=== PATIENT | female | born 1975 | race Asian ===

== ENCOUNTER 2018-11-05 22:11 | Emergency (ER) | payer OTHER ==
[~2018-11-05] VITALS: Ht 157.5 cm; Wt 51.7 kg
[2018-11-05 22:15] VITALS: BP_SYST 132
--- NOTE | 2018-11-05 22:15 | NUR ---
Pt placed to ER bed 07, to gown, to belt repairer. Pt c/o vaginal bleeding x 45 min PROCESSING SPEC. Pt states she noticed a mass of brown-red blood come out. Pt states that she is 8 weeks and this is her first .
--- NOTE | 2018-11-05 22:45 | NUR ---
Dr. Mejia at bedside to perform pelvic exam chaparoned by JENISE Hahn.
[2018-11-05 22:55] LABS: CALCIUM 9.8 mg/dL (8.4-11.0); CREATININE 0.63 mg/dL (0.55-1.30); POTASSIUM 3.9 mmol/L (3.5-5.1)
[2018-11-05 22:57] LABS: BASOPHILS % (AUTO) 0.4 % (0.0-2.0); EOSINOPHILS # (AUTO) 0.1 K/uL (0.0-0.4); EOSINOPHILS % (AUTO) 0.7 % (0.0-4.0); HEMATOCRIT 22.8 % (36-48); HEMOGLOBIN 7.5 g/dL (12.0-16.0); LYMPHOCYTES # (AUTO) 5.2 K/uL (1.0-5.5); LYMPHOCYTES % (AUTO) 46.5 % (20.5-51.5); MEAN CORPUSCULAR HEMOGLOBIN 23 pg (27-31); MEAN CORPUSCULAR HGB CONC 33 % (32-36); MEAN CORPUSCULAR VOLUME 69 fL (79.0-98.0); MONOCYTES # (AUTO) 0.7 K/uL (0.0-1.0); MONOCYTES % (AUTO) 6.6 % (1.7-9.3); NEUTROPHILS # (AUTO) 5.1 K/uL (1.8-7.7); NEUTROPHILS % (AUTO) 45.8 % (40.0-70.0); PLATELET COUNT (AUTO) 337 K/uL (130-430); RED BLOOD CELL COUNT(AUTO) 3.32 MIL/uL (4.2-6.2); RED CELL DISTRIBUTION WIDTH 15.7 % (9.0-15.0); WHITE BLOOD COUNT (AUTO) 11.1 K/uL (4.8-10.8)
--- NOTE | 2018-11-05 23:15 | NUR ---
Denies c/o pain or discomfort, no needs verbalized at this time.
[2018-11-05 23:20] LABS: ALBUMIN 3.4 g/dL (3.4-4.8); TOTAL BILIRUBIN 0.5 mg/dL (0.0-1.0)
[2018-11-05 23:35] VITALS: BP_SYST 126
--- NOTE | 2018-11-05 23:35 | NUR ---
Patient given written and verbal discharge instructions and verbalizes understanding. ER MD discussed with patient the results and treatment provided. Patient in stable condition. ID arm band removed. No Rx given. Patient educated on pain management and to follow up with PMD. Pain Scale 0/10. Opportunity for questions provided and answered. Medication side effect fact sheet provided.
== END 2018-11-05 23:35 | disposition home or self-care (01) ==
LOC: SED 22:11
DX: O20.0 Threatened abortion (principal); Z91.018 Allergy to other foods; Z3A.09 9 weeks gestation of pregnancy
CPT/HCPCS: 36415; 76801; 80053; 81025; 84702-TC; 85025; 99284

== ENCOUNTER 2019-06-04 16:13 | Inpatient (IN) | payer BC, OTHER ==
[~2019-06-04] VITALS: Ht 158.8 cm; Wt 68.5 kg
[2019-06-04] MEDS ORDERED: OXYTOCIN/0.9 % SODIUM CHLORIDE 1,000 ML IV SCH (17:47)
[2019-06-04] MEDS ORDERED: DINOPROSTONE 10 MG SUPP VG ONE (18:00)
[2019-06-04] MEDS ORDERED: NALBUPHINE HCL 10 MG/ML AMP IVP PRN (18:00)
[2019-06-04 18:14] LABS: BASOPHILS % (AUTO) 0.3 % (0.0-2.0); EOSINOPHILS % (AUTO) 0.4 % (0.0-4.0); HEMATOCRIT 22.3 % (36-48); HEMOGLOBIN 7.2 g/dL (12.0-16.0); LYMPHOCYTES # (AUTO) 3.5 K/uL (1.0-5.5); LYMPHOCYTES % (AUTO) 31.9 % (20.5-51.5); MEAN CORPUSCULAR HEMOGLOBIN 25 pg (27-31); MEAN CORPUSCULAR HGB CONC 32 % (32-36); MEAN CORPUSCULAR VOLUME 77 fL (79.0-98.0); MONOCYTES # (AUTO) 0.8 K/uL (0.0-1.0); MONOCYTES % (AUTO) 7.4 % (1.7-9.3); NEUTROPHILS # (AUTO) 6.6 K/uL (1.8-7.7); PLATELET COUNT (AUTO) 266 K/uL (130-430); RED BLOOD CELL COUNT(AUTO) 2.91 MIL/uL (4.2-6.2); WHITE BLOOD COUNT (AUTO) 11.1 K/uL (4.8-10.8)
[2019-06-04 18:51] VITALS: BP_SYST 119
[2019-06-04] MEDS ORDERED: NS IRRIG SOLN 1000 ML IR ONE (19:30)
[2019-06-04] MEDS ORDERED: MORPHINE SULFATE 10MG/10ML PF AMP EP ONE (19:30)
[2019-06-04] MEDS ORDERED: ePHEDrine sulfate 50 MG/ML VIAL IVP ONE (19:30)
[2019-06-04] MEDS ORDERED: DIPHENHYDRAMINE INJ 50 MG/ML VIAL IV ONE (19:30)
[2019-06-04] MEDS ORDERED: BUPIVACAINE /DEX PF 0.75% SPINAL 2 ML AMP INJ ONE (19:30)
[2019-06-04] MEDS ORDERED: LR 1,000 ML IV.SOLN IV ONE (19:30)
[2019-06-04] MEDS ORDERED: ONDANSETRON HCL 4 MG/2 ML VIAL IVP ONE (19:30)
[2019-06-04] MEDS ORDERED: OXYTOCIN 10 UNIT/ML VIAL IV ONE (19:30)
[2019-06-04] MEDS: LR 1,000 ML IV SCH (19:55)
[2019-06-04] MEDS: HYDROmorphone 1 MG INJ. 1 MG/ML AMPUL IVP PRN (22:53)
[2019-06-05] MEDS: HYDROmorphone 1 MG INJ. 1 MG/ML AMPUL IVP PRN (02:54)
[2019-06-05] MEDS ORDERED: fentaNYL CITRATE/PF 100 MCG/2 ML AMP ONE (04:10)
[2019-06-05] MEDS ORDERED: ROPIVACAINE HCL/PF 0.2% 200 ML ONE (04:11)
[2019-06-05] MEDS: LR 1,000 ML IV SCH ×3 (04:15→15:04)
[2019-06-05] MEDS ORDERED: HYDROmorphone 1 MG INJ. 1 MG/ML AMPUL IVP PRN (06:30)
[2019-06-05] MEDS ORDERED: HYDROmorphone 1 MG INJ. 1 MG/ML AMPUL ONE ×2 (06:53→18:35)
[2019-06-05] MEDS ORDERED: LR 500 ML IV ONE (08:05)
[2019-06-05] MEDS ORDERED: FENT2mCg/mL-ROPIVA0.2%/NS EPID 200 ML EP SCH (08:15)
[2019-06-05] MEDS ORDERED: LR 1,000 ML IV ONE (17:35)
[2019-06-05] MEDS ORDERED: CEFAZOLIN 2 GM IVPB PREMIX 50 ML IV ONE (18:12)
[2019-06-05] MEDS ORDERED: HYDROmorphone 1 MG INJ. 1 MG/ML AMPUL IVP ONE (18:40)
[2019-06-05] MEDS ORDERED: LR 1,000 ML IV SCH (20:25)
[2019-06-05] MEDS ORDERED: MEASLES,MUMPS&RUBELLA VACC/PF 12500 UNIT/0.5 ML VIAL SUBQ PRN (20:30)
[2019-06-05] MEDS ORDERED: DIPH-TET-PERTUS Vaccine 0.5 ML VIAL (ADACEL) I.M. PRN (20:30)
[2019-06-05] MEDS ORDERED: LANOLIN 7 GM OINT. TP PRN (20:30)
[2019-06-05] MEDS ORDERED: DOCUSATE SODIUM 100 MG CAPSULE PO PRN (20:30)
[2019-06-05] MEDS ORDERED: SIMETHICONE 80 MG TAB.CHEW PO PRN (20:30)
[2019-06-05] MEDS ORDERED: ANUSOL 1 EA SUPP.RECT (PREPARATION H) RC PRN (20:30)
[2019-06-05] MEDS ORDERED: OXYCODONE/ACETAMINOPHEN 5-325 TABLET PO PRN (20:30)
[2019-06-05] MEDS ORDERED: KETOROLAC TROMETHAMINE 30 MG VIAL IVP SCH (20:30)
[2019-06-05] MEDS ORDERED: OXYCODONE/ACETAMINOPHEN *10*mg/325 mg TABLET PO PRN (20:30)
[2019-06-05] MEDS ORDERED: HYDROcodone/ACETAMIN 5-325 MG TAB (NORCO/ VICODIN) PO PRN (20:30)
[2019-06-05] MEDS ORDERED: BISACODYL 10 MG/SUPPOSITORY RC PRN (20:30)
[2019-06-05] MEDS ORDERED: TEMAZEPAM 15 MG CAPSULE PO PRN (20:30)
[2019-06-05] MEDS ORDERED: RHO(D) IMMUNE GLOBULIN/MALTOSE 1500 UNITS/1.3 ML (WINHRO) IM PRN (20:30)
[2019-06-05] MEDS ORDERED: SENNOSIDES/DOCUSATE SODIUM 1 TAB TABLET(SENOKOT-S) PO PRN (20:30)
[2019-06-05 20:35] VITALS: BP_SYST 129
[2019-06-05] MEDS: OXYTOCIN/0.9 % SODIUM CHLORIDE 1,000 ML IV SCH (23:58)
[2019-06-05] MEDS: CEFAZOLIN 1 GM IVPB PREMIX 50 ML IV SCH (23:59)
[2019-06-05] MEDS: KETOROLAC TROMETHAMINE 30 MG VIAL IVP SCH (23:59)
[2019-06-06] MEDS: KETOROLAC TROMETHAMINE 30 MG VIAL IVP SCH ×3 (05:34→18:16)
[2019-06-06] MEDS: CEFAZOLIN 1 GM IVPB PREMIX 50 ML IV SCH ×2 (05:35→12:54)
[2019-06-06] MEDS ORDERED: KETOROLAC TROMETHAMINE 30 MG VIAL IVP SCH (06:00)
[2019-06-06 06:21] LABS: BASOPHILS % (AUTO) 0.2 % (0.0-2.0); EOSINOPHILS % (AUTO) 0.1 % (0.0-4.0); LYMPHOCYTES # (AUTO) 1.7 K/uL (1.0-5.5); LYMPHOCYTES % (AUTO) 10.8 % (20.5-51.5); MEAN CORPUSCULAR HEMOGLOBIN 25 pg (27-31); MEAN CORPUSCULAR HGB CONC 33 % (32-36); MEAN CORPUSCULAR VOLUME 76 fL (79.0-98.0); MONOCYTES # (AUTO) 0.9 K/uL (0.0-1.0); MONOCYTES % (AUTO) 5.3 % (1.7-9.3); NEUTROPHILS # (AUTO) 13.5 K/uL (1.8-7.7); NEUTROPHILS % (AUTO) 83.6 % (40.0-70.0); PLATELET COUNT (AUTO) 228 K/uL (130-430); RED BLOOD CELL COUNT(AUTO) 2.45 MIL/uL (4.2-6.2); RED CELL DISTRIBUTION WIDTH 17.7 % (9.0-15.0); WHITE BLOOD COUNT (AUTO) 16.2 K/uL (4.8-10.8)
[2019-06-06 06:40] LABS: HEMATOCRIT 18.7 % (36-48); HEMOGLOBIN 6.2 g/dL (12.0-16.0)
[2019-06-06] MEDS: OXYTOCIN/0.9 % SODIUM CHLORIDE 1,000 ML IV SCH (07:02)
[2019-06-06] MEDS: FERROUS SULFATE 325 MG TABLET.DR PO SCH ×2 (10:16→21:00)
[2019-06-07] MEDS: IBUPROFEN 600 MG TABLET PO SCH ×4 (05:53→18:00)
[2019-06-07] MEDS: FERROUS SULFATE 325 MG TABLET.DR PO SCH (09:00)
[2019-06-07] MEDS ORDERED: BUPIVACAINE /PF 0.5% 30 ML VIAL EP ONE (12:01)
== END 2019-06-07 21:50 | disposition home or self-care (01) | DRG 788 ==
LOC: SPU 16:13 → OBSVTOIN 16:13
PROVIDERS: ADMIT Specialist; ATTEND Specialist
PROC: 10D00Z1 Extraction of Products of Conception, Low, Open Approach (ICD-10-PCS; principal; 2019-06-06)
DX: O62.2 Other uterine inertia (principal); O33.9 Maternal care for disproportion, unspecified; O32.4XX0 Maternal care for high head at term, not applicable or unspecified; O75.89 Other specified complications of labor and delivery; D56.9 Thalassemia, unspecified; Z3A.39 39 weeks gestation of pregnancy; Z37.0 Single live birth
CPT/HCPCS: 36415; 59025; 81002-TC; 85025; 86592; 86886; 86900; 86901; 94760; J0690; J1170; J1200; J1885; J2274; J2405; J2590; J3010; J3490; J7120